=== PATIENT | male | born 1995 | race Caucasian/White ===

== ENCOUNTER 2016-04-29 20:27 | Emergency (ER) | payer SELFPAY ==
[2016-04-29 20:39] VITALS: BP 133/84
[2016-04-29] MEDS ORDERED: Diphtheria,Pertussis(Acell),Tetanus Vaccine 0.5 ML SDV inactive IM ONE (20:44)
[2016-04-29] MEDS ORDERED: Lidocaine 1% 50 ML MDV INJECT ONE (20:45)
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
== END 2016-04-29 21:35 | disposition home or self-care (01) ==
LOC: JD.ED 20:27
DX: S61.213A Laceration without foreign body of left middle finger without damage to nail, initial encounter (principal); W25.XXXA Contact with sharp glass, initial encounter; Z23 Encounter for immunization
CPT/HCPCS: 12001; 90471; 90715; 99282-25; 99283-25